=== PATIENT | male | born 2000 | race Caucasian/White ===

== ENCOUNTER 2021-07-11 13:16 | Emergency (ER) | payer OTHER ==
[~2021-07-11] VITALS: Ht 180.3 cm; Wt 94.3 kg
[2021-07-11 13:33] VITALS: BP 121/80
--- NOTE | 2021-07-11 13:40 | NUR ---
C/O COUGH X 1 DAY.
--- NOTE | 2021-07-11 13:48 | NUR ---
Patient being evaluated by ZEB JOHNSON at [facility].
--- NOTE | 2021-07-11 13:49 | NUR ---
COVID NANCY & COVID PCR SWABS DONE.
[2021-07-11] MEDS ORDERED: PROM118S5 PO (14:29)
--- NOTE | 2021-07-11 14:36 | NUR ---
Patient discharged with v/s stable. Written and verbal after care instructions given and explained. Patient alert, oriented and verbalized understanding of instructions. Ambulatory with steady gait. All questions addressed prior to discharge. ID band removed. Patient advised to follow up with PMD. Rx of PROMETHAZINE given. Patient educated on indication of medication including possible reaction and side effects. Opportunity to ask questions provided and answered.
== END 2021-07-11 14:36 | disposition home or self-care (01) ==
LOC: MED 13:16
DX: R05.9 Cough, unspecified (principal); Z20.822 Contact with and (suspected) exposure to COVID-19; Z79.899 Other long term (current) drug therapy
CPT/HCPCS: 87426; 99283; U0003